=== PATIENT | female | born 1960 | race Hispanic/Latino ===

== ENCOUNTER 2017-01-30 09:27 | Outpatient (CLI) | payer OTHER ==
[~2017-01-30 09:27] MED LIST: PROVENTIL IH ONE
== END 2017-01-30 09:28 | disposition home or self-care (01) ==
LOC: PF 09:27
PROVIDERS: ATTEND Internal Medicine
DX: I10 Essential (primary) hypertension (principal); J44.9 Chronic obstructive pulmonary disease, unspecified; F31.9 Bipolar disorder, unspecified; F32.9 Major depressive disorder, single episode, unspecified; F20.9 Schizophrenia, unspecified
CPT/HCPCS: 94060; 94640